=== PATIENT | female | born 1975 | race American Indian/Alaskan Native ===

== ENCOUNTER 2017-05-25 11:42 | Emergency (ER) | payer SELFPAY ==
[2017-05-25 11:43] VITALS: BMI 24.4
[2017-05-25 11:52] VITALS: TEMP 98; O2SAT 98
[2017-05-25 12:25] LABS: RBC URINE 5 /hpf (0-3); URINE BILIRUBIN NEGATIVE (NEGATIVE); URINE BLOOD 1+ (NEGATIVE); URINE COLOR Yellow (YELLOW); URINE GLUCOSE (UA) NORMAL (Normal); URINE KETONE NEGATIVE (NEGATIVE); URINE LEUKOCYTE ESTERASE NEG Leu/uL (Negative); URINE PROTEIN NEGATIVE (NEGATIVE); URINE UROBILINOGEN NORMAL mg/dL (0.2-1.0); WBC URINE < 1 /hpf (0-5)
[2017-05-25] MEDS ORDERED: Dexamethasone 4 mg/1 ml IM STA (12:28)
[2017-05-25] MEDS ORDERED: Dexamethasone 4 mg/1 ml ONE (12:49)
--- NOTE | 2017-05-25 13:16 | RAD ---
Lumbar spine three views History: Low back pain. Comparison: None available. 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 Minimal retrolisthesis of L4 on L5 as well as L2 on L3. Fecal retention in the colon. Calcified phleboliths in the pelvis. Impression: Degenerative changes. If pain persists, consider MRI.
--- NOTE | 2017-05-25 13:41 | C.PDOC ---
History Of Present Illness Patient is a 41 y/o female who presents to the ED with complaint of left sided lower back pain. Patient admits to experiencing intermittent, non-radiating back pain for the past 2-3 months, but pain worsened within the last week. Patient notes pain worsens with movement and bending; denies trauma, fever, CP, SOB, and abdominal pain. Patient denies any other physical complaints at this time. Time Seen by Provider: 05/25/17 11:54 Chief Complaint (Nursing): Back Pain History Per: Patient History/Exam Limitations: no limitations Onset/Duration Of Symptoms: Days (symptoms have worsened over past week. ) Current Symptoms Are (Timing): Still Present Pain Scale Rating Of: 7 Previous Symptoms: Back Pain Associated Symptoms: denies: Incontinence, New Weakness, New Numbness Exacerbating Factor(s): Movement, Other (bending. ) Recent travel outside of the [place]: No Past Medical History Reviewed: Historical Data, Nursing Documentation, Vital Signs Vital Signs: Last Vital Signs Temp 98 F 05/25/17 11:45 Pulse 61 05/25/17 13:53 Resp 18 05/25/17 13:53 BP 136/75 05/25/17 13:53 Pulse Ox 98 05/25/17 14:59 - Medical History PMH: No Chronic Diseases, Fractures (left ankle), Pneumonia (age 16 not hospitalized) - [facility] Procedures ANESTH INJEC PERIPH NERV (10/08/14) APPLICATION OF SPLINT (09/19/14) OP RED-INT FIX TIB/FIBUL (10/08/14) OPEN REDUC-ANKLE DISLOC (10/08/14) TETANUS TOXOID ADMINIST (12/12/13) Family History: States: No Known Family Hx - Social History Hx Tobacco Use: No Hx Alcohol Use: Yes Hx Substance Use: No - Immunization History Hx Tetanus Toxoid Vaccination: No Hx Influenza Vaccination: No Hx Pneumococcal Vaccination: No Review Of Systems Except As Marked, All Systems Reviewed And Found Negative. Constitutional: Negative for: Fever, Chills Cardiovascular: Negative for: Chest Pain Respiratory: Negative for: Shortness of Breath Physical Exam - Physical Exam Appears: Well, Non-toxic Skin: Normal Color, Warm, Dry, No Rash Head: Atraumatic, Normacephalic Eye(s): bilateral: Normal Inspection, PERRL, EOMI Oral Mucosa: Moist Neck: Normal ROM, No Midline Cervical Tenderness, No Paracervical Tenderness, Supple Chest: Symmetrical Cardiovascular: Rhythm Regular, No Friction Rub, No Murmur Respiratory: Normal Breath Sounds, No Rales, No Rhonchi, No Wheezing Gastrointestinal/Abdominal: Soft, No Tenderness Back: Paraspinal Tenderness (left sided) Extremity: Normal ROM (x4), No Swelling Neurological/Psych: Oriented x3, Normal Speech, Normal Cognition, Normal Motor, Normal Sensation Gait: Steady ED Course And Treatment O2 Sat by Pulse Oximetry: 98 (room air) Pulse Ox Interpretation: Normal Medical Decision Making Medical Decision Making: Plan: Flexaril, Decadron, and Toradol administered. LS XRay ordered. LS Spine XRay findings: History: Low back pain. Comparison: None available. 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 Minimal retrolisthesis of L4 on L5 as L2 on L3. Fecal retention in the colon. Calcified phleboliths in the pelvis. Impression: Degenerative changes. If pain persists, consider MRI. On re-exam, the patient reports improvement of symptoms. Lungs are CTA, heart is RRR, abdomen is soft, non-tender Abdomen is soft, non-tender and patient is tolerating PO well. Ambulatory in the ED with steady gait. Follow up with the medical doctor within 1-2 days. Return if worsened. Disposition - Disposition Referrals: Emile Matson MD [Non-Staff] - Disposition: HOME/ ROUTINE Disposition Time: 13:37 Condition: GOOD Additional Instructions: Follow up with the medical doctor within 1-2 days. Return if worsened. Prescriptions: Cyclobenzaprine [Flexeril] 5 mg PO TID #21 tab Naproxen [Naprosyn] 500 mg PO BID #20 tab Instructions: Acute Low Back Pain (GEN), Back Exercises (ED) Forms: [facility] (Setswana) - Clinical Impression Clinical Impression: Low back strain - Scribe Statement The provider has reviewed the documentation as recorded by the Scribe Leticia Day All medical record entries made by the Scribe were at my direction and personally dictated by me. I have reviewed the chart and agree that the record accurately reflects my personal performance of the history, physical exam, medical decision making, and the department course for this patient. I have also personally directed, reviewed, and agree with the discharge instructions and disposition.
[2017-05-25 13:54] VITALS: BP 136/75; PULSE 61; RESP 18
== END 2017-05-25 13:55 | disposition home or self-care (01) ==
LOC: C.ER 11:42
DX: S39.012A Strain of muscle, fascia and tendon of lower back, initial encounter (principal); X58.XXXA Exposure to other specified factors, initial encounter
CPT/HCPCS: 72100; 81001; 84703; 96372; 99284; J1100; J1885